=== PATIENT | male | born 1970 | race Caucasian/White ===

== ENCOUNTER 2020-07-16 08:55 | Emergency (ER) | payer SELFPAY ==
[2020-07-16] MEDS ORDERED: Ampicillin/Sulbactam 3 GM VIAL ONE (09:34)
[2020-07-16] MEDS ORDERED: Ketorolac Tromethamine 30 MG/ML VIAL ONE (09:34)
[2020-07-16] MEDS ORDERED: Sodium Chloride 0.9% 1,000 ML ONE (09:34)
[2020-07-16 09:37] LABS: #Basophils 0.2 thou/uL (0.0-0.2); #Eosinphils 0.1 thou/uL (0.0-0.7); #Monocytes 1.1 thou/uL (0.11-0.59); #Neutrophils 11.5 thou/uL (1.40-6.50); %Basophils 1.3 % (0.0-1.0); %Eosinophils 0.9 % (0.0-10.0); %Lymphocytes 13.3 % (21.0-51.0); %Monocytes 7.3 % (0.0-10.0); %Neutrophils 77.2 % (42.0-75.0); Hemoglobin 14.7 g/dL (14.0-18.0); Mean Corpuscular HGB CONC 32.5 g/dL (32.0-36.0); Mean Corpuscular Hemoglobin 30.1 pg (27.0-31.0); Mean Corpuscular Volume 92.6 fL (78.0-98.0); Mean Platelet Volume 8.4 fL (7.4-10.4); Platelet Count 231 thou/uL (130-400); RBC Distribution Width 11.6 % (11.5-14.5); Red Blood Cell (RBC) Count 4.88 mill/uL (4.70-6.10); White Blood Cell (WBC) Count 14.8 thou/uL (4.8-10.8)
[2020-07-16 09:50] LABS: Anion Gap 17 mmol/L (10-20); BUN (Urea Nitrogen) 19 mg/dL (8.9-20.6); Calc. Creatinine Clearance 0 mL/min (70-130); Calcium 8.9 mg/dL (7.8-10.44); Carbon Dioxide 24 mmol/L (22-29); Chloride 104 mmol/L (98-107); Glucose 100 mg/dL (70-105); Potassium 3.8 mmol/L (3.5-5.1); Sodium 141 mmol/L (136-145)
== END 2020-07-16 11:17 | disposition home or self-care (01) ==
LOC: MADERS 08:55
DX: K04.7 Periapical abscess without sinus (principal); K02.9 Dental caries, unspecified; L03.211 Cellulitis of face; R60.0 Localized edema; R00.0 Tachycardia, unspecified; Z71.6 Tobacco abuse counseling; I10 Essential (primary) hypertension
CPT/HCPCS: 80048; 83605; 85025; 87040; 96374; 96375; 99406; J0295; J1885; J7050

== ENCOUNTER 2020-07-21 06:19 | Emergency (ER) | payer SELFPAY | END 2020-07-21 07:13 | disposition home or self-care (01) | LOC: MADERS 06:19 | DX: B37.42 Candidal balanitis (principal); I10 Essential (primary) hypertension; F17.210 Nicotine dependence, cigarettes, uncomplicated | CPT/HCPCS: 99283 ==

== ENCOUNTER 2020-12-16 03:02 | Emergency (ER) | payer OTHER, SELFPAY ==
[2020-12-16] MEDS ORDERED: Ibuprofen 800 MG TAB ONE (03:38)
== END 2020-12-16 03:55 | disposition home or self-care (01) ==
LOC: MADERS 03:02
DX: S60.212A Contusion of left wrist, initial encounter (principal); F17.220 Nicotine dependence, chewing tobacco, uncomplicated; Y04.0XXA Assault by unarmed brawl or fight, initial encounter

== ENCOUNTER 2021-04-27 19:51 | Emergency (ER) | payer SELFPAY ==
[2021-04-27] MEDS ORDERED: Cephalexin 500 MG CAP ONE (21:09)
== END 2021-04-27 21:15 | disposition home or self-care (01) ==
LOC: MADERS 19:51
DX: B35.3 Tinea pedis (principal); L03.90 Cellulitis, unspecified; I10 Essential (primary) hypertension; E11.9 Type 2 diabetes mellitus without complications; E66.9 Obesity, unspecified; F17.210 Nicotine dependence, cigarettes, uncomplicated; Z68.45 Body mass index [BMI] 70 or greater, adult
CPT/HCPCS: 99283